=== PATIENT | female | born 1955 | race Caucasian/White ===

== ENCOUNTER → 2018-07-19 10:06 | Outpatient (CLI) | payer OTHER, SELFPAY ==
--- NOTE | 2018-07-19 | DI.MG.S_ITS ---
BILATERAL DIGITAL SCREENING MAMMOGRAM 3D/2D WITH CAD: 07/19/2018 CLINICAL: Routine screening. Comparison is made to exams dated: 01/23/2017 mammogram, 01/12/2016 mammogram, and 11/11/2014 mammogram - [facility]. There are scattered fibroglandular elements in both breasts. Current study was also evaluated with a Computer Aided Detection (CAD) system. No significant masses, calcifications, or other findings are seen in either breast. There has been no significant interval change. IMPRESSION: NEGATIVE There is no mammographic evidence of malignancy. A 1 year screening mammogram is recommended. This exam was interpreted at Station ID: [id number]. NOTE: For mammograms, a report in lay terms will be sent to the patient. Approximately 15% of breast malignancies will not be visualized mammographically. In the management of a palpable breast mass, a negative mammogram must not discourage biopsy of a clinically suspicious lesion. Electronically Signed By: Chris hayes/penrad:07/21/2018 17:46:41 copy to: Lisbeth Guzman letter sent: Normal Exam ACR BI-RADS Category 1: Negative 3341F
== END ==
PROVIDERS: PCP Family Medicine; Visit Provider Family Medicine
DX: Z12.31 Encounter for screening mammogram for malignant neoplasm of breast (principal)
CPT/HCPCS: 77063; 77067

== ENCOUNTER → 2020-04-26 12:18 | Outpatient (CLI) | payer OTHER, SELFPAY ==
--- NOTE | 2020-04-26 | DI.MG.S_ITS ---
BILATERAL DIGITAL SCREENING MAMMOGRAM 3D/2D WITH CAD: 04/26/2020 CLINICAL: Routine screening. Comparison is made to exams dated: 07/19/2018 mammogram, 01/23/2017 mammogram, and 01/12/2016 mammogram - [facility]. There are scattered fibroglandular elements in both breasts. Current study was also evaluated with a Computer Aided Detection (CAD) system. No significant masses, calcifications, or other findings are seen in either breast. There has been no significant interval change. IMPRESSION: NEGATIVE There is no mammographic evidence of malignancy. A 1 year screening mammogram is recommended. This exam was interpreted at Station ID: [id number]. NOTE: For mammograms, a report in lay terms will be sent to the patient. Approximately 15% of breast malignancies will not be visualized mammographically. In the management of a palpable breast mass, a negative mammogram must not discourage biopsy of a clinically suspicious lesion. Electronically Signed By: Remington murray/rehana:04/26/2020 13:52:50 copy to: Lisbeth Guzman letter sent: Normal Exam ACR BI-RADS Category 1: Negative 3341F
== END ==
PROVIDERS: Referring Provider Nurse Practitioner Family; Visit Provider Nurse Practitioner Family
DX: Z12.31 Encounter for screening mammogram for malignant neoplasm of breast (principal)
CPT/HCPCS: 77063; 77067

== ENCOUNTER → 2021-06-20 10:54 | Outpatient (CLI) | payer OTHER, SELFPAY ==
--- NOTE | 2021-06-20 10:56 | DI.MG.S_ITS ---
BILATERAL DIGITAL SCREENING MAMMOGRAM 3D/2D WITH CAD: 06/20/2021 CLINICAL: Routine screening. Comparison is made to exams dated: 04/26/2020 mammogram, 07/19/2018 mammogram, and 01/23/2017 mammogram - [facility]. There are scattered fibroglandular elements in both breasts. Current study was also evaluated with a Computer Aided Detection (CAD) system. No significant masses, calcifications, or other findings are seen in either breast. There has been no significant interval change. IMPRESSION: NEGATIVE There is no mammographic evidence of malignancy. A 1 year screening mammogram is recommended. This exam was interpreted at Station ID: [id number]. NOTE: For mammograms, a report in lay terms will be sent to the patient. Approximately 15% of breast malignancies will not be visualized mammographically. In the management of a palpable breast mass, a negative mammogram must not discourage biopsy of a clinically suspicious lesion. Electronically Signed By: Christen reinoso/rehana:06/20/2021 12:13:55 copy to: Lisbeth Guzman letter sent: Normal Exam ACR BI-RADS Category 1: Negative 3341F
== END ==
PROVIDERS: PCP Internal Medicine; Referring Provider Internal Medicine; Visit Provider Internal Medicine
DX: Z12.31 Encounter for screening mammogram for malignant neoplasm of breast (principal)
CPT/HCPCS: 77063; 77067

== ENCOUNTER → 2022-01-09 14:11 | Outpatient (CLI) | payer OTHER, SELFPAY | PROVIDERS: PCP Internal Medicine; Referring Provider Internal Medicine; Visit Provider Internal Medicine | DX: Z13.820 Encounter for screening for osteoporosis (principal); Z78.0 Asymptomatic menopausal state; M85.89 Other specified disorders of bone density and structure, multiple sites | CPT/HCPCS: 77080 ==

== ENCOUNTER → 2022-09-03 14:41 | Outpatient (CLI) | payer OTHER, SELFPAY ==
--- NOTE | 2022-09-03 | DI.MG.S_ITS ---
BILATERAL DIGITAL SCREENING MAMMOGRAM 3D/2D WITH CAD: 09/03/2022 CLINICAL: Routine screening. Comparison is made to exams dated: 06/20/2021 mammogram, 04/26/2020 mammogram, 07/19/2018 mammogram, 01/23/2017 mammogram, and 01/12/2016 mammogram - [facility]. There are scattered areas of fibroglandular density in both breasts (category b / 25%-50% glandular tissue). Current study was also evaluated with a Computer Aided Detection (CAD) system. No significant masses, calcifications, or other findings are seen in either breast. There has been no significant interval change. IMPRESSION: NEGATIVE There is no mammographic evidence of malignancy. A 1 year screening mammogram is recommended. Based on the Tyrer Cuzick model (a risk assessment model) the patient's lifetime risk is 5.0% and her 10 year risk is 2.5%. According to the ACR, ACS, and NCCN guidelines, an annual breast MRI exam along with mammogram is recommended if the patient's lifetime risk is 20% or greater. This exam was interpreted at Station ID: [id number]. NOTE: For mammograms, a report in lay terms will be sent to the patient. Approximately 15% of breast malignancies will not be visualized mammographically. In the management of a palpable breast mass, a negative mammogram must not discourage biopsy of a clinically suspicious lesion. Electronically Signed By: Naman marcelino/rehana:09/04/2022 12:02:18 copy to: Lisbeth Guzman letter sent: Normal Exam ACR BI-RADS Category 1: Negative 3341F
== END ==
PROVIDERS: PCP Internal Medicine; Referring Provider Internal Medicine; Visit Provider Internal Medicine
DX: Z12.31 Encounter for screening mammogram for malignant neoplasm of breast (principal)
CPT/HCPCS: 77063; 77067

== ENCOUNTER → 2022-12-18 07:43 | Outpatient (CLI) | payer OTHER, SELFPAY ==
--- NOTE | 2022-12-18 | DI.ECHO.S_ITS ---
[facility]---------+ [facility] +---------+ : : [address] : : : : [id number] : : : : Phone: [phone]+ Echocardiogram Report + + :Name: QUINTON MEZA Study Date: 12/18/2022 Height: 65 in : :[facility] ReadingLocation: Weight: 163 lb : : Gender: Female BSA: 1.8 m2 : :: 1955 Age: 67 yrs BP: 181/94 mmHg: :Reason For Study: DYSPNEA : :Ordering Physician: ELDA, : :ESTELLE Performed By: Anastasiya Victoria : :Referring: ESTELLE SCHROEDER : + + Interpretation Summary The left ventricle is normal in size and wall thickness. Left ventricular systolic function appears normal without focal wall motion abnormalities. The ejection fraction is estimated to be 60-65%. Diastolic parameters suggest probable normal left ventricular diastolic function and normal filling pressures. The right ventricle is normal in size and function. Pulmonary artery pressures cannot be estimated because of the lack of a measurable TR jet velocity. The left atrium is mildly dilated. Right atrial size is normal. There is mild aortic regurgitation. There is no other significant valvular heart disease. The aortic root is normal size. Procedure: A two-dimensional transthoracic echocardiogram with color flow and Doppler was performed. The study quality was technically adequate. There is no prior echocardiogram noted for this patient. The patient was in sinus rhythm with heart rates between 58-75 bpm during the exam. Left Ventricle: The left ventricle is normal in size and wall thickness. Left ventricular systolic function appears normal without focal wall motion abnormalities. The ejection fraction is estimated to be 60-65%. Diastolic parameters suggest probable normal left ventricular diastolic function and normal filling pressures. Right Ventricle: The right ventricle is normal in size and function. Atria: The left atrium is mildly dilated. Right atrial size is normal. There is no Doppler evidence for an interatrial shunt. Mitral Valve: The mitral valve is normal in structure and function. There is trace mitral regurgitation. Aortic Valve: The aortic valve is trileaflet. The aortic valve opens well. There is no aortic valve stenosis. There is mild aortic regurgitation. Tricuspid Valve: The tricuspid valve is normal in structure and function. No tricuspid regurgitation. Pulmonary artery pressures cannot be estimated because of the lack of a measurable TR jet velocity. Pulmonic Valve: The pulmonic valve leaflets are thin and pliable; valve motion is normal. There is trace pulmonic regurgitation. There is no other significant valvular heart disease. Great Vessels: The aortic root is normal size. The dimensions of the ascending aorta are normal. The IVC is of normal diameter and collapses greater than 50% with a sniff. This suggests a low right atrial pressure of 3 mm Hg. Pericardium/ Pleura There is no pericardial effusion. There is no pleural effusion. MMode/2D Measurements & Calculations LVIDd: 4.4 cm LVOT diam: 2.0 cm LVIDs: 2.8 cm Ao root diam: 3.0 cm FS: 36.0 % asc Aorta Diam: 3.1 cm IVSd: 0.96 cm Ao Arch Diam (Prox Trans): 2.7 cm LVPWd: 0.76 cm LV mahajan. diameter/BSA (cm/m^2): 2.4 LV sys. diameter/BSA (cm/m^2): 1.5 LA A2 area: 22.9 cm2 RA long axis: 5.2 cm LA A4 area: 19.6 cm2 RA area: 16.8 cm2 LA length (vol): 5.4 cm RA vol: 46.6 ml LA vol: 70.7 ml RA : 25.7 ml/m2 LA vol index: 39.0 ml/m2 IVC diam: 1.8 cm RVD1 (basal): 3.3 cm RVD2 (mid): 2.9 cm TAPSE: 1.9 cm Doppler Measurements & Calculations Ao V2 max: 164.1 cm/sec LVOT Max Jelani: 112.6 cm/sec Ao V2 mean: 108.5 cm/sec LV V1 max P.1 mmHg Ao max P.9 mmHg LV V1 VTI: 21.3 cm Ao mean P.5 mmHg NEHEMIAS(I,D): 2.1 cm2 Ao V2 VTI: 31.7 cm NEHEMIAS(V,D): 2.1 cm2 sev ratio: 0.67 NEHEMIAS indexed to BSA (cm^2/m^2): 1.1 AI P1/2t: 513.9 msec AI dec slope: 276.0 cm/sec2 MV E max jelani: 89.0 cm/sec PA V2 max: 100.6 cm/sec MV A max jelani: 63.6 cm/sec PA V2 mean: 74.8 cm/sec MV E/A: 1.4 PA mean P.4 mmHg Med Peak E' Jelani: 5.4 cm/sec PA pr(Accel): 37.9 mmHg E/E' med: 16.5 Lat Peak E' Jelani: 10.5 cm/sec E/E' lat: 8.5 E/e' average: 12.5 MV dec time: 0.15 sec SV(LVOT): 65.7 ml Reading Physician:09:38 AM
== END ==
PROVIDERS: PCP Internal Medicine; Referring Provider Internal Medicine; Visit Provider Internal Medicine
DX: R06.00 Dyspnea, unspecified (principal); I51.7 Cardiomegaly; I35.1 Nonrheumatic aortic (valve) insufficiency
CPT/HCPCS: 93306

== ENCOUNTER → 2023-02-01 15:03 | Outpatient (CLI) | payer OTHER, SELFPAY ==
--- NOTE | 2023-02-01 | DI.NM.S_ITS ---
PROCEDURE: NM EXERCISE TREADMILL NON NUC COMPARISON: None. INDICATIONS: Essential (primary) hypertension FINDINGS: Rest ECG sinus rhythm. Vijay protocol 3:44, maximum heart rate 160 bpm (105% peak predicted), maximum blood pressure 182/110, 4.6 METS, [place] 36%. Exercise ECG sinus tachycardia, no ST segment changes, frequent PVCs. Recovery ECG sinus rhythm, frequent PACs. IMPRESSION: Low risk study. No evidence of exercise-induced ischemia. Exercise-induced PVCs with frequent PACs in recovery. Accelerated heart rate response. Reduced exercise capacity. Dictated by: Yulia Decker D.O. on 02/01/2023 at 17:42 Approved by: Yulia Decker D.O. on 02/01/2023 at 17:45
== END ==
PROVIDERS: PCP Internal Medicine; Referring Provider Internal Medicine; Visit Provider Internal Medicine
DX: R06.00 Dyspnea, unspecified (principal); I10 Essential (primary) hypertension
CPT/HCPCS: 93017

== ENCOUNTER → 2024-01-24 11:33 | Outpatient (CLI) | payer OTHER, SELFPAY ==
--- NOTE | 2024-01-24 11:35 | DI.MG.S_ITS ---
BILATERAL DIGITAL SCREENING MAMMOGRAM 3D/2D WITH CAD: 01/24/2024 CLINICAL: Routine screening. Comparison is made to exams dated: 09/03/2022 mammogram, 06/20/2021 mammogram, and 04/26/2020 mammogram - [facility]. There are scattered areas of fibroglandular density in both breasts (category b / 25%-50% glandular tissue). Current study was also evaluated with a Computer Aided Detection (CAD) system. No significant masses, calcifications, or other findings are seen in either breast. There has been no significant interval change. IMPRESSION: NEGATIVE There is no mammographic evidence of malignancy. A 1 year screening mammogram is recommended. Based on the Tyrer Cuzick model (a risk assessment model) the patient's lifetime risk is 4.5% and her 10 year risk is 2.5%. According to the ACR, ACS, and NCCN guidelines, an annual breast MRI exam along with mammogram is recommended if the patient's lifetime risk is 20% or greater. This exam was interpreted at Station ID: [id number]. NOTE: For mammograms, a report in lay terms will be sent to the patient. Approximately 15% of breast malignancies will not be visualized mammographically. In the management of a palpable breast mass, a negative mammogram must not discourage biopsy of a clinically suspicious lesion. Electronically Signed By: Piero tran/rehana:01/24/2024 16:26:00 copy to: Lisbeth Guzman letter sent: Normal Exam ACR BI-RADS Category 1: Negative 3341F
== END ==
PROVIDERS: PCP Internal Medicine; Referring Provider Internal Medicine; Visit Provider Internal Medicine
DX: Z12.31 Encounter for screening mammogram for malignant neoplasm of breast (principal); R92.323 Mammographic fibroglandular density, bilateral breasts
CPT/HCPCS: 77063; 77067

== ENCOUNTER 2024-08-17 06:20 | Day surgery (SDC) | payer OTHER, SELFPAY ==
--- NOTE | 2024-08-17 | PATH_ITS ---
[facility] Accession Number: [id number] No. of containers..03 Tissue . 01 Material submitted: . PART A: colon - ASCENDING COLON POLYP X2 PART B: colon - TRANSVERSE COLON POLYP PART C: rectum - RECTAL POLYP . 01 Diagnosis: Part A: ASCENDING COLON POLYP X2: Sessile serrated adenomas. . Part B: TRANSVERSE COLON POLYP: Tubular adenoma. . Part C: RECTAL POLYP: Tubular adenoma. STO 08/18/20241854 Local . 01 Electronically signed: . Yoav Sanz MD, Pathologist NPI- [id number] . 01 Gross description: . Part A: ASCENDING COLON POLYP X2: Received in formalin are 2 fragment(s) of addison, soft tissue measuring 0.9 x 0.4 x 0.2 cm to 1.0 x 0.6 x 0.2 cm submitted entirely in 1 cassette(s) . Part B: TRANSVERSE COLON POLYP: Received in formalin is 1 fragment(s) of addison, soft tissue measuring 0.3 x 0.3 x 0.3 cm submitted entirely in 1 cassette(s) . Part C: RECTAL POLYP: Received in formalin are 2 fragment(s) of addison, soft tissue measuring 0.3 x 0.2 x 0.2 cm to 0.5 x 0.3 x 0.2 cm submitted entirely in 1 cassette(s) /FRANK 08/18/20241854 Local . 01 Pathologist provided ICD-10: D12.2, D12.3, D12.8 . 01 CPT . 831354, 933753, 721080 Specimen Comment: A courtesy copy of this report has been sent to [facility] Performed at: [address], [place] [id number] MD Yoav Sanz MD Phone: [phone]
[2024-08-17 07:16] VITALS: BP 166/106; PULSE 102; RESP 17; TEMP 36.7
[2024-08-17] MEDS: SODIUM CHLORIDE 0.9% 1,000 ML 150 ML IV (07:23)
--- NOTE | 2024-08-17 07:46 | PM.HP.IH.1 ---
History of Present Illness History of Present Illness Date Patient Seen: 08/17/24 Time Patient Seen: 07:46 Chief complaint: Screening Colonoscopy Narrative: 68 yo WF, 10 year since her last colonoscopy, with a history of polyps. No changes in bowels. [facility] Medical History (Updated 08/17/24 @ 07:47 by Jhonny Kraft MD) Colon cancer screening (08/17/24) Social History Smoking Status: Never smoker Comment: Hypertension Meds Home Medications and Allergies Home Medications Medication Instructions Recorded Confirmed Type amoxicillin 875 mg-potassium 875 mg PO BID #20 tabs 05/20/17 Rx clavulanate 125 mg tablet (Augmentin) codeine 10 mg-guaifenesin 100 mg/5 5 ml PO QHS #60 mL 05/20/17 Rx mL oral liquid sodium sul 1.479 gram-potas ch See Rx Instructions PO PER PKG DIR 07/24/24 Rx 0.188 gram-magnes sul 0.225 gram #24 tabs tablet (Sutab) hydrochlorothiazide 12.5 mg tablet 12.5 mg PO DAILY 08/17/24 08/17/24 History Allergies Allergy/AdvReac Type Severity Reaction Status Date / Time No Known Drug Allergies Allergy Verified 08/17/24 07:15 Review of Systems Review of Systems ROS: Yes All systems reviewed with the patient and are negative except as otherwise documented Exam Vital Signs (past 8 hours): - 08/17/24 07:16 Temperature 98.0 F Pulse Rate 102 H Respiratory Rate 17 Blood Pressure 166/106 H Oxygen Delivery Method Room Air Oxygen Delivery Method Room Air Narrative Exam Narrative: Gen: NAD, sitting comfortably in bed, appears well HEENT: Sclera are anicteric, head is normocephalic and atraumatic, trachea is midline. CV: RRR, no JVD Resp: clear to auscultation bilaterally, equal chest wall movement bilaterally Abd: soft, nontender, normoactive bowel sounds Ext: no edema, full range of motion Neuro: Cranial nerves II-XII grossly intact, no focal deficits Skin: No erythema or ecchymosis Assessment & Plan Assessment and plan (1) Colon cancer screening: Status: Acute Assessment & Plan narrative: Patient presents for colonoscopy Risks, benefits, alternatives to colonoscopy explained, including but not limited to bowel perforation or other serious complication requiring surgery at less than 1 in 5000 colonoscopies, abdominal pain, cramping or bleeding and less than 1% of colonoscopies, and the chances that we find a diagnosis that would require further intervention of about 2%. Patient agrees to proceed. Time-Based Coding :: [TOTAL MINUTES] spent with patient and on the chart (including review of chart, obtaining history, exam, reviewing outside data, placing orders, documenting exam and treatment plan, and counseling patient) on [DATE]. 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
--- NOTE | 2024-08-17 08:03 | SUR.OPER ---
0803 [facility]
--- NOTE | 2024-08-17 08:15 | PM.OP.COLON ---
Operative Date/Time/Diagnoses Date of procedure: 08/17/24 Time of procedure: 08:15 Pre-op diagnosis: Personal history of polyps Post-op diagnosis: same (Polyps of the ascending colon, transverse colon rectum) Procedure & Clinicians Study performed: Colonoscopy with cold snare polypectomy of ascending colon polyp x2, transverse colon polyp and rectal polyp Same procedure as scheduled: Yes Indications: Personalof polyp Surgeon: Jhonny Kraft Procedure Notes SCOAP/Timeout: Performed Procedure in detail: Time-out was performed. Mac was induced. Patient was placed in left lateral decubitus position. The perineum was inspected without any gross abnormality. Lubricated pediatric colonoscope was inserted and advanced to the cecum. The terminal ileum was intubated. The colonoscope was withdrawn slowly inspecting the circumference of the colon. Polyps were noted in the ascending colon x2, transverse colon and rectum. These were removed with cold snare polypectomy completely and retrieved. Extensive sigmoid diverticulosis. Very small polyps may have been missed, prep quality was adequate. Retroflexed view of the rectum showed small, non prolapsed nonbleeding internal hemorrhoids. The scope was withdrawn the patient was taken to PACU in good condition. Scope withdrawal time: 11 Sedation minutes: 21 Findings: divertiulosis and polyp(s) Specimen(s): other (1. Ascending colon polyps x2 2. Transverse colon polyp 3. Rectal polyp) Complications: none Impression: Multiple colon polyps Post-procedure Recommendations: Colonoscopy in 3 years Plan for aftercare: Twelve lead EKG for atrial fibrillation throughout the entire procedure Follow up: as needed Disposition: PACU
[2024-08-17 08:17] VITALS: BP 137/80; PULSE 97; RESP 10; TEMP 36.5; O2SAT 92
[2024-08-17 08:26] VITALS: BP 119/71; PULSE 122; RESP 17; O2SAT 95
[2024-08-17 08:27] VITALS: BP 127/74; PULSE 101; RESP 20; O2SAT 98
--- NOTE | 2024-08-17 08:30 | EKG_ITS ---
[place] [address] [address] [place] [address] Test Date: 2024-08-17 Pat Name: Nia Nieves Department: Room: Gender: Female Onsite Case Manager: Brenda IRIZARRY : 1955 Requested By: Order Number: [id number] Reading MD: Measurements Intervals [place] Rate: 99 P: NV: QRS: 36 QRSD: 92 T: -52 QT: 376 QTc: 482 Interpretive Statements Atrial fibrillation Low voltage QRS Nonspecific ST abnormality Abnormal QRS-T angle, consider primary T wave abnormality
[2024-08-17 08:32] VITALS: BP 129/79; PULSE 100; RESP 10; O2SAT 98
[2024-08-17 08:40] VITALS: BP 103/55; PULSE 97; RESP 13; TEMP 36.8; O2SAT 99
== END 2024-08-17 08:43 | disposition home or self-care (01) ==
PROVIDERS: PCP Internal Medicine; Referring Provider Surgery; Visit Provider Surgery
PROC: 0DJD8ZZ Inspection of Lower Intestinal Tract, Via Natural or Artificial Opening Endoscopic (ICD-10-PCS; CPT 45378; principal; 2024-08-17 07:45)
DX: Z12.11 Encounter for screening for malignant neoplasm of colon (principal); D12.3 Benign neoplasm of transverse colon; D12.2 Benign neoplasm of ascending colon; D12.8 Benign neoplasm of rectum; K57.30 Diverticulosis of large intestine without perforation or abscess without bleeding; K64.8 Other hemorrhoids; I48.91 Unspecified atrial fibrillation; I10 Essential (primary) hypertension; E78.5 Hyperlipidemia, unspecified; Z86.0100 Personal history of colon polyps, unspecified; E87.6 Hypokalemia; F41.9 Anxiety disorder, unspecified; Z98.890 Other specified postprocedural states
CPT/HCPCS: 45385; 71045; 80053; 82550; 83690; 83735; 84443; 84484; 85025; 93005; 96374; 99284; J2060; J2405; J2704

== ENCOUNTER 2024-08-17 08:46 | Emergency (ER) | payer OTHER, SELFPAY ==
[2024-08-17] VITALS (10 sets, daily range): BP systolic 123–147; BP diastolic 71–84; PULSE 81–87; RESP 17–27; TEMP 36.5–36.6; O2SAT 99–100
--- NOTE | 2024-08-17 08:58 | ED.ARRPALP ---
HPI - Arrhythmia/Palpitations General Chief Complaint: Arrhythmia/Palpitations Stated Complaint: Afib Time Seen by Provider: 08/17/24 08:56 History of Present Illness HPI narrative: Patient is a 68-year-old female history of hypertension presenting today after routine colonoscopy. She had colonoscopy today for routine screening during the procedure CREATIVE INTERN noted that she was in atrial fibrillation and blood pressure was extremely high. Patient admits that she did not take her blood pressure medication last night or this morning. She says last night she was having too much diarrhea in preparation for the colonoscopy to take medication and this morning she was NPO. However she has absolutely no history of atrial fibrillation. She has no complaints of chest pain or palpitations. She is extremely anxious her mother few months ago in the emergency department and she is quite terrified. Really has no complaints and honestly would like to go home. Related Data Home Medications Medication Instructions Recorded Confirmed hydrochlorothiazide 12.5 mg tablet 12.5 mg PO DAILY 08/17/24 08/17/24 Previous Rx's Medication Instructions Recorded amoxicillin 875 mg-potassium 875 mg PO BID #20 tabs 05/20/17 clavulanate 125 mg tablet (Augmentin) codeine 10 mg-guaifenesin 100 mg/5 5 ml PO QHS #60 mL 05/20/17 mL oral liquid sodium sul 1.479 gram-potas ch See Rx Instructions PO PER PKG DIR 07/24/24 0.188 gram-magnes sul 0.225 gram #24 tabs tablet (Sutab) apixaban 5 mg tablet (Eliquis) 5 mg PO BID #60 tabs 08/17/24 Allergies Allergy/AdvReac Type Severity Reaction Status Date / Time No Known Drug Allergies Allergy Verified 08/17/24 09:40 Patient History Medical History (Updated 08/17/24 @ 10:43 by Jordana Almaraz DO) Colon cancer screening (08/17/24) Social History Smoking Status: Never smoker Smoking Status: Never smoker Exam Initial Vital Signs Initial Vital Signs: Vital Signs Pulse Rate 87 08/17/24 08:52 Pulse Oximetry 99 08/17/24 08:52 GENERAL: Alert anxious 60-year-old female HEENT: Head atraumatic,EOMI, pupils reactive, face symmetric, dry mucous membranes CARDIOVASCULAR: Irregularly regular RESPIRATORY: Breath sounds equal bilaterally, no wheezes rales or rhonchi. ABDOMEN: Soft, nontender. Normoactive bowel sounds all 4 quadrants. No guarding or rebound. EXTREMITIES: Normal range of motion, no clubbing or edema. Neurovascularly intact NEUROLOGICAL: Alert and oriented x4.Normal gait and speech. Cranial nerves II through XII grossly intact. SKIN: Warm, dry, no laceration, no petechiae, no rashes or lesions. Course Orders Ordered: Discontinued Medications Aspirin (Aspirin 81 Mg Chew Tab) 324 mg PO NOW ONE Stop: 08/17/24 08:58 Last Admin: 08/17/24 09:30 Dose: 324 mg Documented By: RB Lactated Ringer's (Lactated Ringers) 1,000 mls @ 1,000 mls/hr IV BOLUS ONE Stop: 08/17/24 10:54 Last Admin: 08/17/24 10:53 Dose: Not Given Documented By: RB Lorazepam (Lorazepam 2 Mg/Ml Inj) 0.5 mg IV NOW ONE Stop: 08/17/24 08:59 Last Admin: 08/17/24 09:19 Dose: 0.5 mg Documented By: RB Potassium Chloride (Potassium Chloride 20 Meq Tab) 20 meq PO NOW ONE Stop: 08/17/24 09:56 Last Admin: 08/17/24 10:27 Dose: 20 meq Documented By: RB Vital Signs Vital signs: Vital Signs - 8 hr 08/17/24 10:54 Temperature 97.7 F MDM - Arrhythmia/Palpitations Lab Data 08/17/24 09:05 08/17/24 09:05 Labs: Lab Results 08/17/24 Range/Units 09:05 WBC 7.1 (4.5-11.0) X10^3/uL RBC 5.04 (4.0-5.2) X10^6/uL Hgb 14.8 (12.0-16.0) g/dL Hct 44.4 (36-46) % MCV 88.2 (80-100) fL MCH 29.4 (26-34) PG MCHC 33.3 (30-36) % RDW 13.7 (11.6-14.8) % Plt Count 209 (150-400) X10^3/uL Neut % (Auto) 72.2 (50-75) % Lymph % (Auto) 21.6 L (25-40) % [place] % (Auto) 5.4 (3-14) % Eos % (Auto) 0.3 L (2-4) % Baso % (Auto) 0.5 (0-2) % Neut # (Auto) 5100 (2556-2128) /uL Lymph # (Auto) 1500 (2378-8782) /uL [place] # (Auto) 400 (0-900) /uL Eos # (Auto) 0 (0-450) /uL Baso # (Auto) 0 (0-100) /uL Sodium 141 (137-145) mmol/L Potassium 3.1 L (3.4-5.1) mmol/L Chloride 112 H (98-107) mmol/L Carbon Dioxide 19 L (22-32) mmol/L BUN 21 H (7-17) mg/dL Creatinine 0.95 (0.52-1.04) mg/dL Estimated GFR > 60 (>60) mL/min BUN/Creatinine Ratio 22.1 H (6-22) Glucose 120 H (80-110) mg/dL Calcium 9.0 (8.4-10.2) mg/dL Magnesium 1.9 (1.6-2.3) mg/dL Total Bilirubin 0.9 (0.2-1.3) mg/dL AST 27 (14-36) IU/L ALT 22 (<35) IU/L Alkaline Phosphatase 58 (38-126) U/L Total Creatine Kinase 35 (30-135) U/L Troponin I < 0.012 (0.01-0.034) ng/mL Total Protein 6.8 (6.3-8.2) g/dL Albumin 4.3 (3.5-5.0) g/dL Globulin 2.5 (1.7-4.1) g/dL Albumin/Globulin Ratio 1.7 (1.0-2.8) Lipase 46 (23-300) U/L TSH 1.55 (0.47-4.68) uIU/mL Imaging Data Chest x-ray: Radiologist's Impresson: PROCEDURE: XR CHEST 1V INDICATIONS: chest pain TECHNIQUE: One view of the chest was acquired. COMPARISON: None. FINDINGS: Surgical changes and devices: None. Lungs and pleura: Question left basilar infiltrate. No pleural effusions or pneumothorax. Mediastinum: Mediastinal contours appear normal. Heart size is mildly enlarged.. Bones and chest wall: No suspicious bony lesions. Overlying soft tissues appear unremarkable. IMPRESSION: Cardiomegaly. Question left basilar infiltrate. Dictated by: Joe Aldridge M.D. on 08/17/2024 at 10:43 Approved by: Joe Aldridge M.D. on 08/17/2024 at 10:43 ECG Data Attestation: I personally reviewed and interpreted this ECG as follows: Prior ECG tracings: not available for review Interpretation: Atrial fibrillation rate 99 no ischemia MDM Narrative Medical decision making narrative: MDM CC: Irregular heartbeat Complicating co-morbidities: Hypertension anxiety Medical records reviewed: Colonoscopy today polyps were removed recommendation repeat colonoscopy in 3 year Differential considered: New onset versus chronic atrial fibrillation Exam documented above, pertinent findings include: Extremely anxious 68-year-old female irregular irregular heart but rate controlled no evidence fluid overload Lab Test results independently reviewed as above. Pertinent findings: WBC 7.1 hemoglobin 14.8 hematocrit 44.4 platelets 209 Sodium 141 potassium 3.1 chloride 112 carbon dioxide 19 BUN 21 creatinine 0.95 Magnesium 1.9 TSH 1.55 troponin negative Independently reviewed EKG as above rate controlled atrial fibrillation previous EKGs was from earlier today which also showed atrial fibrillation Imaging studies independently reviewed: Chest x-ray cardiomegaly Consultations: None Treatments: Aspirin IV fluids potassium Ativan Re-evaluations: Patient remains in rate controlled atrial fibrillation Discussion: Patient 68-year-old female who presents today post colonoscopy with atrial fibrillation. She was rate controlled and completely asymptomatic. She has not a candidate for cardioversion unclear when she went into atrial fibrillation. She has a CHADS-VASc score of 3 qualifying her for anticoagulation and Eliquis. However I did not want to give her Eliquis today she just had 2 polyps removed at colonoscopy recommend that she start Eliquis tomorrow. She was given aspirin here in the emergency department. She was on metoprolol she just has not taken her dose due to the colonoscopy.. She has pretty severe anxiety apparently her mom of complications from atrial fibrillation in the emergency department just a few months prior. I have done my best to address her concerns and home her fears. She was given a dose of Ativan as well. LUIS?DS?-VASc Score for Atrial Fibrillation Stroke Risk from [email or web address] on 08/17/2024 All calculations should be rechecked by clinician prior to use RESULT SUMMARY: 3 points Stroke risk was 3.2% per year in >90,000 patients (the [place] Atrial Fibrillation Cohort Study) and 4.6% risk of stroke/TIA/systemic embolism. INPUTS: Age ?> 1 = 65-74 Sex ?> 1 = Female CHF history ?> 0 = No Hypertension history ?> 1 = Yes Stroke/TIA/thromboembolism history ?> 0 = No Vascular disease history (prior DC, peripheral artery disease, or aortic plaque) ?> 0 = No Diabetes history ?> 0 = No Discharge Plan Departure Patient Disposition: Home Clinical Impression: Atrial fibrillation, Acute hypokalemia Instructions: DI for Atrial Fibrillation Activity Restrictions/Additional Instructions: *You have been diagnosed with atrial fibrillation *What to do: At this time please follow-up with your primary care provider. You may need referral to Cardiology. At this time it is recommended that you take anticoagulation such as Eliquis, Xarelto or Pradaxa. Not starting you on Eliquis today you did just have polyps removed with your colonoscopy. Go ahead and start tomorrow *Continue to take medications as directed Eliquis 5 mg twice a day Please take your metoprolol today when you get home *Follow up with your primary care provider in 2-3 days or call [phone] *Return to ER if you should have increasing chest pain palpitations shortness of breath bloody stool or any new, worsening or concerning symptoms Prescriptions: New Eliquis 5 mg tablet 5 mg PO BID Qty: 60 0RF No Action codeine-guaifenesin 100 MG/10 MG liquid 5 ml PO QHS Qty: 60 0RF amoxicillin-pot clavulanate [Augmentin] 875 MG/125 MG tablet 875 mg PO BID Qty: 20 0RF Sutab 1.479-0.188- 0.225 gram tablet See Rx Instructions PO PER PKG DIR Qty: 24 0RF Rx Instructions: take as directed by Physician hydrochlorothiazide 12.5 mg tablet 12.5 mg PO DAILY Referrals: Christal Terrazas ARNP [Primary Care Provider] - Stand Alone Forms: Patient Portal/API/Survey
[2024-08-17 09:16] LABS: Add Manual Diff / Slide Review NO; Basophils Absolute Auto 0 /uL (0-100); Basophils Percent Auto 0.5 % (0-2); Eosinophils Absolute Auto 0 /uL (0-450); Eosinophils Percent Auto 0.3 % (2-4); Hematocrit 44.4 % (36-46); Hemoglobin 14.8 g/dL (12.0-16.0); Lymphocytes Absolute Auto 1500 /uL (1100-4500); Lymphocytes Percent Auto 21.6 % (25-40); Mean Corpuscular HGB Conc 33.3 % (30-36); Mean Corpuscular Hemoglobin 29.4 PG (26-34); Mean Corpuscular Volume 88.2 fL (80-100); Monocytes Absolute Auto 400 /uL (0-900); Monocytes Percent Auto 5.4 % (3-14); Neutrophils Absolute Auto 5100 /uL (1500-7000); Neutrophils Percent Auto 72.2 % (50-75); Platelet Count 209 X10^3/uL (150-400); Red Blood Cell Count 5.04 X10^6/uL (4.0-5.2); Red Cell Distribution Width 13.7 % (11.6-14.8); White Blood Cell Count 7.1 X10^3/uL (4.5-11.0)
[2024-08-17] MEDS: LORazepam 2 MG/ML INJ 0.5 MG IV (09:19)
[2024-08-17 09:24] LABS: Alanine Aminotransferase 22 IU/L (<35); Albumin 4.3 g/dL (3.5-5.0); Albumin Globulin Ratio 1.7 (1.0-2.8); Alkaline Phosphatase 58 U/L (38-126); Aspartate Aminotransferase 27 IU/L (14-36); BUN Creatinine Ratio 22.1 (6-22); Bilirubin Total 0.9 mg/dL (0.2-1.3); Blood Urea Nitrogen 21 mg/dL (7-17); Carbon Dioxide 19 mmol/L (22-32); Chloride 112 mmol/L (98-107); Creatine Kinase 35 U/L (30-135); Estimated Glomerular Filt Rate > 60 mL/min (>60); Globulin 2.5 g/dL (1.7-4.1); Glucose 120 mg/dL (80-110); HEMOLYSIS 31 (0-50); Lipase 46 U/L (23-300); Magnesium 1.9 mg/dL (1.6-2.3); Potassium 3.1 mmol/L (3.4-5.1); Sodium 141 mmol/L (137-145); Total Protein 6.8 g/dL (6.3-8.2)
[2024-08-17] MEDS: ASPIRIN 81 MG CHEW TAB 324 MG PO (09:30)
[2024-08-17 09:36] LABS: Troponin I < 0.012 ng/mL (0.01-0.034)
--- NOTE | 2024-08-17 09:52 | EKG_ITS ---
[facility] [address] [place] [address] Test Date: 2024-08-17 Pat Name: Nia Lizbeth Department: [facility] Room: Gender: Female Oracle Developer: VASQUEZ : 1955 Requested By: Order Number: [id number] Reading MD: Measurements Intervals [place] Rate: 85 P: OK: QRS: 6 QRSD: 94 T: -19 QT: 400 QTc: 476 Interpretive Statements Atrial fibrillation
[2024-08-17 09:56] LABS: Thyroid Stimulating Hormone 1.55 uIU/mL (0.47-4.68)
[2024-08-17] MEDS: POTASSIUM CHLORIDE 20 MEQ TAB PO (10:27)
--- NOTE | 2024-08-17 10:53 | PC.NURSE ---
Provider informed this RN that patient no longer needed lactated ringers and this medication wasn't given. Patient self dressed and refused wheelchair for discharge. Patient left department with spouse ambulating independently.
== END 2024-08-17 10:52 | disposition home or self-care (01) ==
PROVIDERS: Emergency Provider Emergency Medicine; PCP Internal Medicine
DX: I48.91 Unspecified atrial fibrillation (principal); E87.6 Hypokalemia; I10 Essential (primary) hypertension; F41.9 Anxiety disorder, unspecified; Z98.890 Other specified postprocedural states
CPT/HCPCS: 71045; 80053; 82550; 83690; 83735; 84443; 84484; 85025; 93005; J2060

== ENCOUNTER → 2025-05-19 12:52 | Outpatient (CLI) | payer OTHER, SELFPAY ==
--- NOTE | 2025-05-19 12:54 | DI.MG.S_ITS ---
MM screening mammo BI: 05/19/2025. BI-RADS: 1 CLINICAL: 69-year old female for bilateral screening mammogram. Tyrer-Cuzick lifetime risk of 4.2%. No personal or first-degree family history of breast cancer. The patient is status-post reduction mammoplasty. PRIOR EXAMS 01/24/2024, 09/03/2022, 06/20/2021, 04/26/2020. MAMMOGRAPHY TECHNIQUE: 2D and 3D (tomosynthesis) digital mammographic views obtained, with additional images as needed for full coverage. Current study was also evaluated with a Computer Aided Detection (CAD) system. DENSITY B. There are scattered areas of fibroglandular density. MAMMOGRAPHY FINDINGS Bilateral: No suspicious mass, asymmetry, microcalcification, or other abnormality seen. IMPRESSION: * No evidence of malignancy. RECOMMENDATIONS Bilateral * Annual screening mammography. OVERALL ASSESSMENT CATEGORY BI-RADS-1: Negative. The [employer] recommends annual screening mammography beginning at age 40 for women with average risk of breast cancer. ELECTRONICALLY SIGNED: Carly Arnold M.D. on 05/19/2025 at 04:29:05 PM PT Interpreting Station ID: [id number]
== END ==
LOC: MAMMO 12:53
PROVIDERS: PCP Registered Nurse; Referring Provider Registered Nurse; Visit Provider Registered Nurse
DX: Z12.31 Encounter for screening mammogram for malignant neoplasm of breast (principal)
CPT/HCPCS: 77063; 77067